=== PATIENT | male | born 1945 | race Two or more races ===

== ENCOUNTER 2019-07-30 08:50 | Inpatient (IN) | payer OTHER ==
[2019-07-30] VITALS (7 sets, daily range): BP systolic 142–165; BP diastolic 74–102
[~2019-07-30] VITALS: Ht 172.7 cm; Wt 70.3 kg
[2019-07-30] MEDS ORDERED: CLONIDINE 0.2MG TABLET PO ONE (10:00)
[2019-07-30] MEDS ORDERED: NITROGLYCERIN OINT 1GM/INCH UDPKT TD ONE (10:00)
[2019-07-30 10:11] LABS: HEMATOCRIT. 26.3 % (42.0-52.0); HEMOGLOBIN. 8.8 g/dL (14.0-18.0); MEAN CORPUSCULAR HEMOGLOBIN 31.5 pg (28.0-32.0); MEAN CORPUSCULAR VOLUME 94.4 fL (80.0-94.0); MEAN PLATELET VOLUME 8.4 fl (7.4-10.4); PLATELET 94 x1000/uL (130-400); RED BLOOD CELL COUNT 2.79 mill/uL (4.7-6.1); RED CELL DISTRIBUTION WIDTH 15.8 % (11.6-14.6)
[2019-07-30 10:13] LABS: CHLORIDE 98 mEq/L (98-107)
[2019-07-30 10:35] LABS: PLATELET ESTIMATE SLIGHTLY DECREASED
[2019-07-30] MEDS ORDERED: HYDRALAZINE 20MG/ML VIAL IV ONE (14:30)
[2019-07-30] MEDS ORDERED: CLONIDINE 0.1MG TABLET PO PRN (18:45)
[2019-07-30] MEDS ORDERED: HYDRALAZINE 20MG/ML VIAL IV PRN (19:00)
[2019-07-30] MEDS ORDERED: ENOXAPARIN 40MG/0.4ML SYR SUBCUT SCH (19:00)
[2019-07-30] MEDS ORDERED: HYDROCODONE/ACETAMINOPHEN 5/325MG TABLET PO PRN (19:00)
[2019-07-30] MEDS ORDERED: IPRATROPIUM/ALBUTEROL 0.5-3(2.5)MG/3ML NEB HHN PRN (19:00)
[2019-07-30] MEDS ORDERED: ACETAMINOPHEN 650MG SUPP PR PRN (19:00)
[2019-07-30] MEDS ORDERED: ONDANSETRON HCL 4MG/2ML INJ IV PRN (19:00)
[2019-07-30] MEDS ORDERED: PNEUMOCOCCAL 23-VAL P-SAC VAC 0.5 ML IM ONE (19:45)
[2019-07-30] MEDS ORDERED: EPOETIN ALFA 10000UNITS/ML VIAL SUBCUT SCH (21:00)
[2019-07-30] MEDS ORDERED: LEVOFLOXACIN 500MG PREMIX 100 ML IV NR (21:00)
[2019-07-30] MEDS: METHYLPREDNISOLONE SOD SUCC 40 MG/ML VIAL IV SCH (21:10)
[2019-07-31] VITALS (18 sets, daily range): BP systolic 119–185; BP diastolic 70–120
[2019-07-31 06:41] LABS: HEMATOCRIT. 27.1 % (42.0-52.0); HEMOGLOBIN. 9.2 g/dL (14.0-18.0); MEAN CORPUSCULAR HEMOGLOBIN 31.8 pg (28.0-32.0); MEAN CORPUSCULAR VOLUME 93.4 fL (80.0-94.0); MEAN PLATELET VOLUME 8.3 fl (7.4-10.4); PLATELET 85 x1000/uL (130-400); RED CELL DISTRIBUTION WIDTH 15.6 % (11.6-14.6)
[2019-07-31 06:59] LABS: CHLORIDE 101 mEq/L (98-107)
[2019-07-31 07:10] LABS: LDL CHOLESTEROL 60 mg/dL (5-100)
[2019-07-31 07:11] LABS: CREATINE KINASE 52 IU/L (39-308); HDL CHOLESTEROL 62 mg/dL (40-59)
[2019-07-31 07:12] LABS: T4 FREE 1.49 ng/dL (0.76-1.46)
[2019-07-31] MEDS: CLONIDINE 0.1MG TABLET PO PRN ×2 (08:17→18:49)
[2019-07-31] MEDS: METHYLPREDNISOLONE SOD SUCC 40 MG/ML VIAL IV SCH ×2 (08:18→17:12)
[2019-07-31 18:09] LABS: PLATELET ESTIMATE DECREASED
[2019-08-01] VITALS (7 sets, daily range): BP systolic 144–177; BP diastolic 64–94
[2019-08-01] MEDS: METHYLPREDNISOLONE SOD SUCC 40 MG/ML VIAL IV SCH (07:47)
[2019-08-01] MEDS ORDERED: DILT240T12 PO (12:33)
[2019-08-01] MEDS ORDERED: FINA5TAB11 PO (12:33)
[2019-08-01] MEDS ORDERED: DOXA4TAB3 PO (12:33)
[2019-08-01] MEDS ORDERED: HYDR100T26 PO (12:33)
[2019-08-01] MEDS ORDERED: FURO40TA5 PO (12:33)
[2019-08-01] MEDS ORDERED: LOVA40TA73 PO (12:33)
[2019-08-01] MEDS ORDERED: SEVE800T8 MT (12:33)
[2019-08-01] MEDS ORDERED: FINASTERIDE 5MG TABLET PO SCH (12:45)
[2019-08-01] MEDS ORDERED: FUROSEMIDE 40MG TABLET PO SCH (12:45)
[2019-08-01] MEDS ORDERED: SEVELAMER CARBONATE 800 MG TABLET PO SCH (13:00)
[2019-08-01] MEDS ORDERED: HYDRALAZINE HCL 100MG TABLET PO SCH (14:00)
[2019-08-01] MEDS ORDERED: DOXAZOSIN MESYLATE 4MG TABLET PO SCH (15:00)
[2019-08-01] MEDS ORDERED: LEVOFLOXACIN 250MG PREMIX 50 ML IV SCH (20:00)
[2019-08-01] MEDS ORDERED: ATORVASTATIN CALCIUM 10MG TABLET PO SCH (21:00)
[2019-08-02] MEDS ORDERED: DILTIAZEM HCL 120MG CAPSULE CD 24HR PO SCH (09:00)
== END 2019-08-01 16:10 | disposition home or self-care (01) | DRG 189 ==
LOC: ER 08:50 → EDBD 08:50 → 3WST 10:34 → ENRESERV 15:35
PROVIDERS: ADMIT Internal Medicine; ATTEND Internal Medicine
PROC: 5A1D70Z Performance of Urinary Filtration, Intermittent, Less than 6 Hours Per Day (ICD-10-PCS; principal; 2019-07-30)
PROC: 5A09357 Assistance with Respiratory Ventilation, Less than 24 Consecutive Hours, Continuous Positive Airway Pressure (ICD-10-PCS; 2019-07-30)
PROC: 5A1D70Z Performance of Urinary Filtration, Intermittent, Less than 6 Hours Per Day (ICD-10-PCS; 2019-07-31)
PROC: 5A09357 Assistance with Respiratory Ventilation, Less than 24 Consecutive Hours, Continuous Positive Airway Pressure (ICD-10-PCS; 2019-07-31)
DX: J96.01 Acute respiratory failure with hypoxia (principal); N18.6 End stage renal disease; E11.52 Type 2 diabetes mellitus with diabetic peripheral angiopathy with gangrene; I48.92 Unspecified atrial flutter; J81.1 Chronic pulmonary edema; I13.2 Hypertensive heart and chronic kidney disease with heart failure and with stage 5 chronic kidney disease, or end stage renal disease; I16.0 Hypertensive urgency; I48.91 Unspecified atrial fibrillation; I50.9 Heart failure, unspecified; E11.22 Type 2 diabetes mellitus with diabetic chronic kidney disease; E11.21 Type 2 diabetes mellitus with diabetic nephropathy; E11.40 Type 2 diabetes mellitus with diabetic neuropathy, unspecified; C61 Malignant neoplasm of prostate; D63.8 Anemia in other chronic diseases classified elsewhere; Z99.2 Dependence on renal dialysis; Z89.519 Acquired absence of unspecified leg below knee
CPT/HCPCS: 36415; 71045; 80053; 80061; 82550; 82962; 83880; 84439; 84443; 84484; 85025; 93005; 93923; 94660; 96365; 96372; 96375; 99291; J0360; J0885; J1956; J2920